=== PATIENT | male | born 1995 | race Caucasian/White ===

== ENCOUNTER 2018-01-09 22:11 | Emergency (ER) | payer OTHER, BC ==
[~2018-01-09] VITALS: Ht 182.9 cm; Wt 119.2 kg
[~2018-01-09 22:11] MED LIST: FLONASE16 G1 BOTH NARES; KEFLEX250 MG PO
[2018-01-09 22:37] VITALS: BP 145/83
== END 2018-01-10 01:22 | disposition home or self-care (01) ==
LOC: EME 22:11
PROC: 3E0234Z Introduction of Serum, Toxoid and Vaccine into Muscle, Percutaneous Approach (ICD-10-PCS; principal; 2018-01-09)
DX: T22.092A Burn of unspecified degree of multiple sites of left shoulder and upper limb, except wrist and hand, initial encounter (principal); T22.011A Burn of unspecified degree of right forearm, initial encounter; X08.8XXA Exposure to other specified smoke, fire and flames, initial encounter; Z88.2 Allergy status to sulfonamides; Z23 Encounter for immunization
CPT/HCPCS: 99281; 99284